=== PATIENT | male | born 1980 | race Caucasian/White ===

== ENCOUNTER → 2020-03-22 14:03 | Outpatient (BNVA) | payer SELFPAY | PROVIDERS: PCP Internal Medicine; Referring Provider Internal Medicine; Visit Provider Physician Assistant | DX: E66.3 Overweight (principal); Z68.27 Body mass index [BMI] 27.0-27.9, adult; K90.49 Malabsorption due to intolerance, not elsewhere classified; Z98.84 Bariatric surgery status | CPT/HCPCS: 99212 ==

== ENCOUNTER → 2020-03-30 07:56 | Outpatient (BNVA) | payer BC, SELFPAY | PROVIDERS: Visit Provider Physician Assistant | DX: Z76.89 Persons encountering health services in other specified circumstances (principal) ==

== ENCOUNTER → 2020-04-03 08:01 | Outpatient (BNVA) | payer BC, SELFPAY | PROVIDERS: PCP Internal Medicine; Visit Provider Surgery | DX: Z76.89 Persons encountering health services in other specified circumstances (principal) ==

== ENCOUNTER → 2020-05-16 08:15 | Outpatient (BNVA) | payer BC, SELFPAY | PROVIDERS: PCP Internal Medicine; Referring Provider Internal Medicine; Visit Provider Dietitian, Registered | DX: Z76.89 Persons encountering health services in other specified circumstances (principal) ==

== ENCOUNTER → 2020-06-02 08:03 | Outpatient (BNVA) | payer BC, SELFPAY | PROVIDERS: PCP Internal Medicine; Visit Provider Physician Assistant | DX: Z76.89 Persons encountering health services in other specified circumstances (principal) ==

== ENCOUNTER → 2020-08-28 08:08 | Outpatient (BNVA) | payer BC, SELFPAY | PROVIDERS: PCP Internal Medicine; Visit Provider Dietitian, Registered | DX: E66.3 Overweight (principal); Z68.25 Body mass index [BMI] 25.0-25.9, adult | CPT/HCPCS: 97803 ==

== ENCOUNTER → 2020-10-03 08:12 | Outpatient (BNVA) | payer OTHER, SELFPAY | PROVIDERS: Visit Provider Dietitian, Registered | DX: E66.3 Overweight (principal); Z68.26 Body mass index [BMI] 26.0-26.9, adult | CPT/HCPCS: 97803 ==

== ENCOUNTER 2020-12-23 07:37 | Outpatient (REF) | payer OTHER, SELFPAY ==
[2020-12-23 08:32] LABS: MANUAL DIFF FLAG NO
[2020-12-23 08:44] LABS: Basophils Percent Auto 0.7 % (0-2); Eosinophils Absolute Auto 0.1 X10*3/uL (0.0-0.4); Eosinophils Percent Auto 2.2 % (0-4); Hematocrit 48.2 % (42-52); Hemoglobin 15.9 g/dl (14.0-18.0); Imm Gran Abs Auto 0.03 X10*3/uL (0.00-0.03); Imm Gran Pct Auto 0.6 % (0.0-0.4); Lymphocytes Absolute Auto 1.7 X10*3/uL (1.2-4.9); Lymphocytes Percent Auto 32.2 % (20-40); Mean Corpuscular Hemoglobin 30.7 pg (27.0-33.0); Mean Corpuscular Volume 93.1 fL (80-98); Mean Platelet Volume 11.4 fL (9.4-12.4); Monocytes Absolute Auto 0.4 X10*3/uL (0.1-1.2); Monocytes Percent Auto 7.3 % (2-11); Platelet Count 152 X10*3/uL (160-400); Red Blood Count 5.18 X10*6/uL (4.60-5.80); White Blood Count 5.3 X10*3/uL (4.8-10.8)
[2020-12-23 08:54] LABS: Alanine Aminotransferase 34 U/L (0-40); Albumin Level 4.2 g/dL (3.5-5.0); Alkaline Phosphatase 85 U/L (39-117); Anion Gap 13 (12-20); Aspartate Amino Transferase 24 U/L (5-37); Bilirubin Total 2.1 mg/dL (0.0-1.0); Blood Urea Nitrogen 18 mg/dL (9-16); C Reactive Protein 0.11 mg/dL (< or = 0.50); Calcium 9.4 mg/dL (8.4-10.2); Carbon Dioxide 30 mmol/L (22-29); Chloride 104 mmol/L (96-108); Cholesterol 179 mg/dL; Estimated Average Glucose 94 mg/dL; Estimated Glomerular Filt Rate > 60; Glucose Random 106 mg/dL (60-115); HDL Cholesterol 53 mg/dL; Hemoglobin A1C 123.7697 umol/L; Hemoglobin A1c % 4.9 %; Iron 137 mcg/dL (45-160); LDL Cholesterol Calculated 111 mg/dl; Percent Iron Saturation 45 % (15-50); Potassium 4.5 mmol/L (3.3-5.1); Sodium 142 mmol/L (135-145); Total Iron Binding Capacity 303 mcg/dL (228-428); Total Protein 6.9 g/dL (6.5-8.0); Triglycerides 78 mg/dL; Unsaturated Iron Binding 166 ug/dL
[2020-12-23 09:15] LABS: Ferritin 157 ng/mL (20-250); TSH reflex Free T4 1.41 uIU/mL (0.32-4.0); Vitamin D 25-OH Total 59.1 ng/mL (>30)
[2020-12-25 03:55] LABS: Folate 18.9 ng/mL (> or = 4.0); Vitamin B12 764 pg/mL (200-900)
[2020-12-25 11:36] LABS: Calcium (PTHI) 9.5 mg/dL (8.6-10.3); PTHI 16 pg/mL (14-64)
[2020-12-25 18:07] LABS: Insulin Level Total 23.3 uIU/mL
[2020-12-26 05:17] LABS: Zinc 106 mcg/dL (60-130)
[2020-12-27 17:37] LABS: Vitamin A 46 mcg/dL (38-98)
[2020-12-28 12:46] LABS: Vitamin B1 36 nmol/L (8-30)
== END 2020-12-23 07:38 | disposition home or self-care (01) ==
LOC: HO.LAB 07:37
PROVIDERS: Visit Provider Physician Assistant
DX: E66.3 Overweight (principal); Z98.84 Bariatric surgery status
CPT/HCPCS: 36415; 80053; 80061; 82306; 82607; 82728; 82746; 83036; 83525; 83540; 83970; 84425; 84443; 84590; 84630; 85025; 86140

== ENCOUNTER → 2021-01-12 14:18 | Outpatient (BNVA) | payer OTHER, SELFPAY | PROVIDERS: Visit Provider Physician Assistant ==

== ENCOUNTER → 2021-05-04 08:02 | Outpatient (BNVA) | payer OTHER, SELFPAY | PROVIDERS: Visit Provider Physician Assistant ==